=== PATIENT | female | born 1945 | race Caucasian/White ===

== ENCOUNTER → 2017-11-21 | Outpatient (CLI) | payer MEDICARE, BC ==
[2017-11-21] MEDS: REGADENOSON 0.4 MG/5 ML DISP.SYRIN. IV (09:37)
== END | disposition home or self-care (01) ==
LOC: NM 07:20
DX: R07.9 Chest pain, unspecified (principal)
CPT/HCPCS: 78452; 93017; 96374; 96375; 96376; A9500; J2785

== ENCOUNTER 2019-04-02 06:43 | Outpatient (CLI) | payer MEDICARE, BC ==
[2019-04-02] VITALS (22 sets, daily range): BP systolic 97–158; BP diastolic 47–82
[~2019-04-02] VITALS: Ht 157.5 cm; Wt 61.2 kg
[2019-04-02] MEDS ORDERED: LIDOCAINE 1% PF 2 ML VIAL. ONE (07:35)
[2019-04-02] MEDS ORDERED: IODIXANOL 320 MG/ML 100 ML VIAL. ONE ×2 (07:35→08:54)
[2019-04-02 07:37] LABS: HEMATOCRIT 40.7 % (36.0-47.0); HEMOGLOBIN 13.3 g/dL (12.0-15.5); RED BLOOD COUNT 4.88 x10^6/uL (3.50-5.40); RED CELL DISTRIBUTION WIDTH 15.3 % (11.5-14.5); WHITE BLOOD COUNT 9.3 x10^3/uL (4.0-11.0)
[2019-04-02 07:56] LABS: CALCIUM 9.6 mg/dL (8.5-10.1); CREATININE 0.7 mg/dL (0.6-1.0); POTASSIUM 4.3 mmol/L (3.5-5.1)
[2019-04-02 08:02] LABS: PROTHROMBIN TIME PATIENT 12.2 SEC (11.7-14.0)
[2019-04-02] MEDS ORDERED: WARF6TAB47 PO (08:23)
[2019-04-02] MEDS ORDERED: SOTA80TA48 PO (08:23)
[2019-04-02] MEDS ORDERED: FENO145T PO (08:23)
[2019-04-02] MEDS ORDERED: MECL25TA3 PO (08:23)
[2019-04-02] MEDS ORDERED: CALC-167 PO (08:23)
[2019-04-02] MEDS ORDERED: ASPI1TAB21 PO (08:23)
[2019-04-02] MEDS ORDERED: BUDE10.22 IH (08:23)
[2019-04-02] MEDS ORDERED: MULT1TAB52 PO (08:23)
[2019-04-02] MEDS ORDERED: METF500T PO (08:23)
[2019-04-02] MEDS ORDERED: ALBU2.5V8 INH (08:23)
[2019-04-02] MEDS ORDERED: ASCO-219 PO (08:23)
[2019-04-02] MEDS ORDERED: OMEG1CAP6 PO (08:23)
[2019-04-02] MEDS ORDERED: THYR30TA PO (08:23)
[2019-04-02] MEDS ORDERED: AMLO1TAB97 PO (08:23)
[2019-04-02] MEDS ORDERED: SIMV40TA3 PO (08:23)
[2019-04-02] MEDS ORDERED: HEPARIN for IV BOLUS 10,000 UNIT/10 ML VIAL. ONE (08:27)
[2019-04-02] MEDS ORDERED: MIDAZOLAM HCL/PF 2 MG/2 ML VIAL. ONE (08:27)
[2019-04-02] MEDS ORDERED: VERAPAMIL 5 MG/2 ML VIAL. ONE (08:27)
[2019-04-02] MEDS ORDERED: fentaNYL PF VIAL 100 MCG/2 ML VIAL ONE (08:27)
[2019-04-02] MEDS ORDERED: NITROGLYCERIN 200 MCG/2 ML SYRINGE FOR CATH/VASC LAB. ONE (08:28)
[2019-04-02] MEDS ORDERED: LIDOCAINE 1% Multi-Dose 20 ML VIAL. ONE (08:44)
[2019-04-02] MEDS ORDERED: BIVALIRUDIN 250 MG VIAL. IV ONE ×2 (08:55→09:15)
[2019-04-02] MEDS ORDERED: ASPIRIN 325 MG TABLET ONE (09:05)
[2019-04-02] MEDS ORDERED: CLOPIDOGREL BISULFATE 75 MG TABLET ONE (09:05)
[2019-04-02] MEDS ORDERED: hydrALAZINE 20 MG/ML VIAL. ONE (09:13)
[2019-04-02] MEDS ORDERED: NITROGLYCERIN 200 MCG/2 ML SYRINGE FOR CATH/VASC LAB. IART ONE (09:15)
[2019-04-02] MEDS ORDERED: IODIXANOL 320 MG/ML 100 ML VIAL. IART ONE (09:15)
[2019-04-02] MEDS ORDERED: CLOPIDOGREL BISULFATE 75 MG TABLET PO ONE (09:15)
[2019-04-02] MEDS ORDERED: fentaNYL PF VIAL 100 MCG/2 ML VIAL IV ONE (09:15)
[2019-04-02] MEDS ORDERED: ASPIRIN 325 MG TABLET PO ONE (09:15)
[2019-04-02] MEDS ORDERED: MIDAZOLAM HCL/PF 2 MG/2 ML VIAL. IV ONE (09:15)
[2019-04-02] MEDS ORDERED: LIDOCAINE 1% PF 2 ML VIAL. INJ ONE (09:15)
[2019-04-02] MEDS ORDERED: HEPARIN for IV BOLUS 10,000 UNIT/10 ML VIAL. IART ONE (09:15)
[2019-04-02] MEDS ORDERED: VERAPAMIL 5 MG/2 ML VIAL. IART ONE (09:15)
[2019-04-02] MEDS ORDERED: hydrALAZINE 20 MG/ML VIAL. IVP ONE (09:30)
--- NOTE | 2019-04-02 09:43 | PDOC ---
MODERATE SEDATION ASSESSMENT RISKS/ALTERNATIVES Risks/Alternatives Risks and alternatives of this type of sedation and procedure discussed with: RISK/ALTERNATIVES: Patient H & P ON CHART H & P H & P on chart and reviewed for co-morbid conditions and appropriate labs. H&P ON CHART: Yes STATUS PREG STATUS ASSESSED: N/A MEDS/ALLERGIES REVIEWED Meds/Allergies Reviewed Medications and Allergies including time and route of recently administered narcotics and sedatives. MEDS/ALLERGIES REVIEWED: Yes ASA RATING ASA RATING: II AIRWAY ASSESSMENT Airway Assessment Airway patency, oral function limitations, presence of caps, crowns, dentures, partials, and ability to extend neck assessed. AIRWAY ASSESSMENT: Yes MALLAMPATI SCORE MALLAMPATI SCORE: II PRE-SEDATION ASSESSMENT PRE-SEDATION ASSESSMENT: Yes ANYA GOYAL MD Apr 02, 2019 09:43
[2019-04-02] MEDS ORDERED: ACETAMINOPHEN 325 MG TABLET. PO PRN (09:45)
[2019-04-02] MEDS ORDERED: CONTRAST GIVEN. MC PRN (09:45)
[2019-04-02] MEDS ORDERED: NITROGLYCERIN SUBLINGUAL 0.4 MG BOTTLE OF 25. SL PRN (09:45)
--- NOTE | 2019-04-02 09:58 | CARD ---
MR#: [id number] Date of Study: 04/02/2019 Ordering Physician: ANYA SEGOVIA, Referring Physician: ANYA SEGOVIA, Tech: RT Venkat (R) ABIGAIL APPROVED REPORT Technologist: RT Venkat (R) ABIGAIL Nurse: Cori Elizabeth R.N. Procedure(s) performed: 1. Left heart catheterization, selective coronary angiography and left ventr iculography via right transradial approach 2. Successful PCI/drug eluting stent placement to the left anterior descending artery 3. Instant wave free ratio (IFR) measurement the left circumflex artery stenosis FLOURO TIME 13.0 MINUTES DOSE 37.03 Gycm2 CONTRAST 147 VISIPAQUE MODERATE SEDATION 68 MINUTES INDICATION The indication(s) include : unstable angina . [facility] Clinical Frailty Scale [facility] Clinical Frailty Scale: Mildly Frail Heart Failure Heart Failure: No PROCEDURE NARRATIVE After explaining the risks, benefits and alternative options, informed consent was obtained from ton ent. Patient was brought to the cardiac Tripper and right wrist was prepped and draped in the usual fashion after confirming a positive modified Ricky's test. Arterial access was obtained in the righ t radial artery and a 6 Tuvaluan sheath was inserted. 6 Tu[place]uan Vaibhav catheter was used to perform jory ective angiography of the left and right coronary arteries. 6 Tu[place]uan pigtail catheter was used to pe rform left ventriculography. Since patient was found to have angiographically borderline significant lesion involving the left circumflex artery a decision was made to perform physiologic assessment usi ng Instant wave free ratio (IFR) measurement. The left main coronary artery was engaged with 6 Tu[place]uan XB 3.5 guide catheter and the stenosis in the midsegment of the left circumflex artery was crossed w ith Scaleogy verrata PressureWire. IFR measurement was made that was physiologically insignificant 1.0 . FINDINGS 1. Hemodynamics: Left ventricular end-diastolic pressure of 22 mmHg. No pullback gradient across th e aortic valve. 2. Left ventriculography: Normal left ventricle systolic function with ejection fraction estimated at 70%. No significant mitral regurgitation seen. 3. Coronary angiography: a. The left main coronary artery arose from the left sinus of Valsalva, gave rise to the left anteri or descending and left circumflex arteries and did not show any significant stenosis. b. The left anterior descending artery showed a calcified 80% stenosis involving the midsegment. c. The left circumflex artery showed 50% stenosis involving the midsegment there was physiologically insignificant based on IFR measurement of 1.0. d. The right coronary artery was a dominant vessel arising from the right sinus of Valsalva that did not show any significant stenosis. INTERVENTION The left main coronary artery was engaged with 6 Tu[place] XB 3.5 guide catheter. The stenosis in the mi dsegment of the left anterior descending artery was crossed with a 0.014 inch [employer] water guidewi re. This was predilated with a 2.5 x 12 mm trek balloon following which this was successfully treated with a 3.0 x 15 mm resolute daniel drug-eluting stent. Follow-up angiography showed resolution of the stenosis to 0% with DEBBY-3 distal flow. Patient tolerated the procedure well. Hemostasis was achieved using TR band. There were no immediate complications. DEBBY Flow DEBBY Flow (Pre-Intervention): DEBBY-2 DEBBY Flow (Post-Intervention): DEBBY-3 Conclusion 1. 80% stenosis involving the left anterior descending artery. 50% stenosis involving the left circu mflex artery that was physiologically insignificant based on IFR measurement. 2. Successful PCI/drug eluting stent placement to the left anterior descending artery. 3. Normal left ventricle systolic function with ejection fraction estimated at 70%. Recommendations 1. Aspirin 81 mg daily (lower dose since patient is on coumadin) 2. Plavix 75 mg daily 3. Cardiovascular risk factor modification Signed by : Anya Segovia, Electronically Approved : 04/02/2019 09:57:47
[2019-04-02] MEDS ORDERED: IV 1/2 NORMAL SALINE 1,000 ML IV SCH (10:00)
--- NOTE | 2019-04-02 10:28 | NUR ---
Facesheet with cardiac cath information faxed to cardiac rehab [id number]. Plavix 75mg 1 daily #30 with 1 refill and Aspirin 81mg 1 daily x30 days called into [facility] pharmacy in [facility].
[2019-04-02] MEDS ORDERED: IV NORMAL SALINE 250ML 250 ML IV ONE (10:45)
--- NOTE | 2019-04-02 11:05 | NUR ---
Patient able to tolerate ice chips, then advanced to ice water, tolerated well. Patient eaten saltine crackers with no issues.
--- NOTE | 2019-04-02 15:13 | NUR ---
Discharge Note: TERE ALVARADO Discharge instructions and discharge home medications reviewed with Spouse and a copy given. All questions have been answered and understanding verbalized. Follow up appt scheduled for Tuesday, June 25, 2019 at 0130pm in [facility] with Dr. Segovia. The following instructions and handouts were given: moderate sedation and transradial site care. Discontinued lines and drains: Left hand, dressing clean dry intact. Patient discharged to home with via wheelchair to private vehichle.
[2019-04-03] MEDS ORDERED: CLOPIDOGREL BISULFATE 75 MG TABLET PO SCH (08:00)
[2019-04-03] MEDS ORDERED: ASPIRIN ENTERIC COATED 81 MG TABLET.DR. PO SCH (08:00)
== END 2019-04-02 15:00 | disposition home or self-care (01) ==
LOC: CCL 06:43
PROVIDERS: ATTEND Internal Medicine Cardiovascular Disease
DX: I25.110 Atherosclerotic heart disease of native coronary artery with unstable angina pectoris (principal); E11.9 Type 2 diabetes mellitus without complications; I10 Essential (primary) hypertension; I48.0 Paroxysmal atrial fibrillation; E03.9 Hypothyroidism, unspecified; J44.9 Chronic obstructive pulmonary disease, unspecified; Z79.82 Long term (current) use of aspirin; Z87.891 Personal history of nicotine dependence; Z88.1 Allergy status to other antibiotic agents; Z88.0 Allergy status to penicillin; Z88.8 Allergy status to other drugs, medicaments and biological substances; Z79.84 Long term (current) use of oral hypoglycemic drugs
CPT/HCPCS: 36415; 80048; 85027; 85610; 93458; 93571; 99152; 99153; C1725; C1769; C1874; C1887; C1892; C9600; J0360; J0583; J1644; J2250; J3010; J3490; J7050; Q9967; 92928; C1713; J7030

== ENCOUNTER → 2021-04-28 | Day surgery (SDC) | payer MEDICARE, BC ==
[~2021-04-28] VITALS: Ht 157.5 cm; Wt 69.0 kg
[~2021-04-28] MED LIST: ALBU2.5V8 INH; ALBUTEROL SULFATE 2.5 MG/3 ML NEBU. NEB PRN; AMLO1TAB97 PO; ASCO500T53 PO; ASPI1TAB21 PO; BUDE10.22 IH; CALC-167 PO; CLOP75TA PO; EPINEPHrine 1 MG/ML VIAL INJ PRN; EPINEPHrine 1 MG/ML VIAL ONE; FENO145T PO; HYDROmorphone 2 MG/ML VIAL IVP PRN; IV RINGERS,LACTATED 1000ML 1,000 ML IV SCH; LIDOCAINE 1% Multi-Dose 20 ML VIAL. INJ PRN; LIDOCAINE 1% Multi-Dose 20 ML VIAL. ONE; LIDOCAINE 2% VISCOUS 100 ML BOTTLE. MM PRN; LIDOCAINE 2% VISCOUS 100 ML BOTTLE. ONE; LIDOCAINE 4% TOPICAL 50 ML SOLUTION. MM PRN; LIDOCAINE 4% TOPICAL 50 ML SOLUTION. ONE; MECL-75 PO; METF500T PO; MORPHINE SULFATE 2 MG/ML INJ. IVP PRN; MULT-445 PO; OMEG1CAP6 PO; PHENYLEPHRINE in 0.9% NACL PF 1 MG/10 ML SYRINGE. IV ONE; PROCHLORPERAZINE 10 MG/2 ML VIAL. IVP PRN; PROPOFOL 10 MG/ML (20ML) VIAL. IV ONE; SIMV40TA18 PO; SOTA80TA48 PO; THYR30TA PO; WARF6TAB47 PO; fentaNYL PF VIAL 100 MCG/2 ML VIAL IVP PRN
[2021-04-28 12:25] VITALS: BP 187/79
[2021-04-28 13:00] LABS: HEMOGLOBIN 14.7 g/dL (12.0-15.5); RED BLOOD COUNT 4.61 x10^6/uL (3.50-5.40); RED CELL DISTRIBUTION WIDTH 12.7 % (11.5-14.5); WHITE BLOOD COUNT 10.2 x10^3/uL (4.0-11.0)
[2021-04-28 13:14] LABS: PROTHROMBIN TIME PATIENT 26.4 SEC (11.7-14.0)
[2021-04-28 13:42] VITALS: BP 155/67
--- NOTE | 2021-04-28 15:51 | OP ---
DATE OF SURGERY: 04/28/2021 ATTENDING SURGEON: Lacy Rosa M.D. PROCEDURE: Bronchoscopy. INDICATION: The patient presented with persistent abnormal CT chest revealing multiple pulmonary nodules. Repeat CT revealed some nodules that have increased in size undergoing a diagnostic bronchoscopy. Risks, benefits and alternatives reviewed with the patient. She consented. SEDATION: Please see Anesthesia's notes. DESCRIPTION OF PROCEDURE: Timeout was performed prior to sedation. Vital signs and O2 saturations were maintained within normal limits throughout the procedure. The patient had been on anticoagulation, as a result a bite block was utilized and the vocal cords were visualized through the oral cavity. The vocal cords were then anesthetized with a total of 5 mL of 4% lidocaine. The bronchoscope was then passed through the vocal cords into the proximal trachea. There was some mucus within the distal trachea, white and thick in nature. The mucus was cleared away, both on the right and the left side. The bronchoscope was then wedged into the right middle lobe and a bronchoalveolar lavage was performed. The return was cloudy and somewhat light brown in color. The patient tolerated procedure well with no immediate complication. FINDINGS: 1. Normal vocal cords. 2. Mucous within the distal trachea and left and right upper bronchial tubes. 3. No endobronchial lesion. 4. BAL performed. PLAN: The patient is to follow up in the office, we will follow up on the BAL results. The above was discussed with the at the bedside. GABO DR: Char TID: [id number] CC: MICHELLE Smith
--- NOTE | 2021-05-12 15:11 | PATHOLOGY ---
Note [facility] Accession Number: [id number] TESTS RESULT FLAG UNITS REF RANGE LAB Clinician Provided Cytology Information No. of containers..01 Other (Miscellaneous) Source: BAL RML DIAGNOSIS: BAL RML NEGATIVE FOR MALIGNANT CELLS. FOCALLY REACTIVE BRONCHIAL EPITHELIAL CELLS AND PULMONARY MACROPHAGES PRESENT. THIS INTERPRETATION INCLUDES EVALUATION OF A CELL BLOCK. SILVER METHENAMINE STAINED SMEARS ARE NEGATIVE FOR PNEUMOCYSTIS JIROVECI. NO FUNGAL ORGANISMS ARE PRESENT. Signed out by: 02 Manuel Melendez MD, Pathologist NPI- [id number] Performed by: Stacey Metz, Carbon Capture Power Plant Operator ([facility]) Gross description: 15ML, CLOUDY, RED /LCS 04/29/2021 1708 Local FLAG LEGEND: L-Low Normal,H-High Normal,LL-Alert Low,HH-Alert High <-Panic Low,>-Panic High,A-Abnormal,AA-Critical Abnormal Performed at: [facility] [place] [address] David Hernandez MD, [facility] [place] [id number] [place] [address] Manuel Melendez MD, Performed at: [address], [place], [place] [id number] MD David Hernandez MD Phone: [phone]
== END | disposition home or self-care (01) ==
LOC: SURG 12:12
PROVIDERS: ATTEND Internal Medicine Pulmonary Disease
DX: R91.8 Other nonspecific abnormal finding of lung field (principal); I25.10 Atherosclerotic heart disease of native coronary artery without angina pectoris; I10 Essential (primary) hypertension; I48.91 Unspecified atrial fibrillation; E78.00 Pure hypercholesterolemia, unspecified; J44.9 Chronic obstructive pulmonary disease, unspecified; K21.9 Gastro-esophageal reflux disease without esophagitis; E11.9 Type 2 diabetes mellitus without complications; E03.9 Hypothyroidism, unspecified; F41.9 Anxiety disorder, unspecified; Z85.828 Personal history of other malignant neoplasm of skin; Z87.440 Personal history of urinary (tract) infections; Z87.891 Personal history of nicotine dependence; Z79.899 Other long term (current) drug therapy; Z90.710 Acquired absence of both cervix and uterus; Z98.890 Other specified postprocedural states; Z88.0 Allergy status to penicillin; Z88.1 Allergy status to other antibiotic agents; Z88.2 Allergy status to sulfonamides; Z88.8 Allergy status to other drugs, medicaments and biological substances
CPT/HCPCS: 31624; 36415; 85027; 85610; 87070; 87102; 87116; 87205; 87252; 87801; 88112; 88305; 88312; 94640; J2704; J3490; J7613; 31622; J0171; J2370